=== PATIENT | female | born 1950 | race Caucasian/White ===

== ENCOUNTER 2016-08-22 13:48 | Inpatient (IN) | payer OTHER ==
[~2016-08-22] VITALS: Ht 162.6 cm; Wt 148.2 kg
[~2016-08-22 13:48] MED LIST: ACTONEL150 MG PO; EXCEDRIN1 TABLET PO; GLYBURID-METFO1 EAC3 PO; HYDROCHLOROTHIA50 MG PO; K-Dur PO; KLOR-CON20 MEQ PO; Lopressor PO; Proventil,Ventolin H IH; SIMVASTATIN80 MG PO; SPIRIVA1 INHALATI IH; SUMATRIPTAN SU100 MG PO
[2016-08-22 15:35] LABS: CHLORIDE 98 mEq/L (99-109); POTASSIUM 3.5 mEq/L (3.7-5.4); SODIUM 139 mEq/L (136-147)
[2016-08-22 15:37] LABS: EOSINOPHIL (%) 1.1 % (0-5); EOSINOPHIL COUNT 0.1 K/uL (0-0.3); HEMATOCRIT 58.4 % (36.0-46.0); IMMATURE GRANULOCYTE (%) 0.4 % (0.0-0.7); INSTRUMENT ABS NEUTROPHIL CT 3.7 K/uL; LYMPHOCYTE COUNT 1.3 K/uL (1.0-2.8); MCH 29.1 PG (29.0-34.0); MCHC 31.5 G/DL (30.0-36.0); MCV 92.3 FL (83-99); MEAN PLAT.VOLUME 11.3 uM^3 (9.5-12.4); MONOCYTE (%) 7.1 % (3-12); MONOCYTE COUNT 0.4 K/uL (0-0.8); NEUTROPHIL COUNT 3.7 K/uL (1.8-6.4); PLATELET COUNT 134 K/uL (156-360); RBC DIS.WIDTH-CV 16.6 % (11.8-14.6); RBC DIS.WIDTH-SD 53.3 % (39-53); RED BLOOD COUNT 6.33 M/uL (3.80-5.20); WHITE BLOOD COUNT 5.5 K/uL (4.1-10.2)
[2016-08-22 15:38] LABS: GLUCOSE 147 mg/dL (70-99)
[2016-08-22 15:39] LABS: ANION GAP 9 MEQ/L (2-14)
[2016-08-22 15:40] LABS: TOTAL BILIRUBIN 0.7 mg/dL (0.0-1.0)
[2016-08-22 15:41] LABS: ALKALINE PHOSPHATASE 102 IU/L (3-129); GFR ESTIMATE (CALCULATED) > 59 mL/min/
[2016-08-22 15:42] LABS: UREA NITROGEN (BUN) 7 mg/dL (9-23)
[2016-08-22 15:50] LABS: TROP-I INTERPRETATION NEGATIVE; TROPONIN-I 0.01 ng/mL (0.0-0.30)
[2016-08-22] MEDS ORDERED: EXCEDRIN MIGRA1 EAC3 PO (17:17)
[2016-08-22] MEDS ORDERED: NORCO 10/3251 TABLET PO (17:21)
[2016-08-22] MEDS ORDERED: GABAPENTIN400 MG PO (17:22)
[2016-08-22] MEDS ORDERED: POTASSIUM CHLO10 ME3 PO (17:22)
[2016-08-22] MEDS ORDERED: FUROSEMIDE40 MG PO (17:22)
[2016-08-22] MEDS ORDERED: BENAZEPRIL HCL10 MG PO (17:23)
[2016-08-22 21:30] VITALS: BP 183/71
[2016-08-22 22:56] LABS: INFLUENZA A VIRAL ANTIGEN NEGATIVE; INFLUENZA B VIRAL ANTIGEN NEGATIVE
[2016-08-23] VITALS: BP 154/73
[2016-08-23 04:00] VITALS: BP 143/86
[2016-08-23 08:00] VITALS: BP 162/70
[2016-08-23 08:02] LABS: MCH 28.3 PG (29.0-34.0); MCHC 31.1 G/DL (30.0-36.0); MCV 90.9 FL (83-99); MEAN PLAT.VOLUME 11.4 uM^3 (9.5-12.4); PLATELET COUNT 117 K/uL (156-360); RBC DIS.WIDTH-SD 54.1 % (39-53); RED BLOOD COUNT 5.94 M/uL (3.80-5.20)
[2016-08-23 08:04] LABS: ANION GAP 7 MEQ/L (2-14); CHLORIDE 102 MEQ/L (99-109); GFR ESTIMATE (CALCULATED) > 59 mL/min/; GLUCOSE 191 mg/dL (70-99); SAMPLE HEMOLYSIS CHECK 1; SAMPLE ICTERIC CHECK 0; SAMPLE LIPEMIA CHECK 0; SODIUM 138 MEQ/L (136-147); UREA NITROGEN (BUN) 8 mg/dL (9-23)
[2016-08-23 08:07] LABS: POTASSIUM 4.3 MEQ/L (3.7-5.4)
[2016-08-23 09:53] LABS: Estimated Average Glucose 169 mg/dL (70-123); HEMOGLOBIN A1c (GLYCOHEMOGLOB) 7.5 % HGB (Below 5.7)
[2016-08-23 12:50] VITALS: BP 168/75
[2016-08-23 14:13] LABS: BASE EXCESS 7.6 mEq/L (-3 to +3); BICARBONATE 32.7 mEq/L (22-26); CARBOXY HGB 5.3 % (0-5); COMMENTS - BLOOD GASES A+C+; DEVICE NC; METHEMOGLOBIN 1.7 % (0-1.5); O2 FLOW 3 L/MIN; PCO2 46 mm Hg (35-45); PO2 69 mm Hg (80-100); SITE RR; TOTAL RESP RATE 12 resp/min; pH 7.46 (7.35-7.45)
[2016-08-23 17:02] VITALS: BP 135/72
[2016-08-23 21:53] LABS: POINT-OF-CARE METER ID UU14174225
[2016-08-23 23:46] VITALS: BP 152/73
[2016-08-24 08:00] VITALS: BP 143/76
[2016-08-24 08:27] LABS: POINT-OF-CARE METER ID UU14174225
[2016-08-24 11:58] LABS: POINT-OF-CARE METER ID UU14174225
[2016-08-24 15:46] VITALS: BP 148/72
[2016-08-24 16:57] LABS: POINT-OF-CARE METER ID UU14174225
[2016-08-25 00:12] VITALS: BP 151/76
[2016-08-25 07:01] LABS: ANION GAP 8 MEQ/L (2-14); CHLORIDE 96 MEQ/L (99-109); GFR ESTIMATE (CALCULATED) > 59 mL/min/; GLUCOSE 208 mg/dL (70-99); POTASSIUM 3.8 MEQ/L (3.7-5.4); SAMPLE HEMOLYSIS CHECK 0; SAMPLE ICTERIC CHECK 0; SAMPLE LIPEMIA CHECK 0; SODIUM 138 MEQ/L (136-147); UREA NITROGEN (BUN) 16 mg/dL (9-23)
[2016-08-25 07:27] LABS: EOSINOPHIL (%) 0 % (0-5); HEMATOCRIT 50.5 % (36.0-46.0); IMMATURE GRANULOCYTE (%) 0.3 % (0.0-0.7); INSTRUMENT ABS NEUTROPHIL CT 5.5 K/uL; LYMPHOCYTE COUNT 0.4 K/uL (1.0-2.8); MCH 28.7 PG (29.0-34.0); MCHC 31.7 G/DL (30.0-36.0); MCV 90.5 FL (83-99); MEAN PLAT.VOLUME 11.9 uM^3 (9.5-12.4); MONOCYTE COUNT 0.3 K/uL (0-0.8); NEUTROPHIL (%) 88.8 % (45-76); NEUTROPHIL COUNT 5.5 K/uL (1.8-6.4); PLATELET COUNT 107 K/uL (156-360); RBC DIS.WIDTH-CV 16.2 % (11.8-14.6); RBC DIS.WIDTH-SD 52.7 % (39-53); RED BLOOD COUNT 5.58 M/uL (3.80-5.20)
[2016-08-25 07:41] LABS: WHITE BLOOD COUNT 6.2 K/uL (4.1-10.2)
[2016-08-25 08:17] LABS: INTERNAL CONTROL VALID? YES
[2016-08-25 08:34] VITALS: BP 152/78
[2016-08-25 11:38] LABS: C DIFF TOXIN NEGATIVE (NEGATIVE)
[2016-08-25 11:40] LABS: PROBE CHECK PASS; SPECIMEN PROCESSING CONTROL PASS
[2016-08-25 16:03] VITALS: BP 164/81
[2016-08-25 22:30] LABS: ADD MIUA? NO; BILIRUBIN NEGATIVE; BLOOD NEGATIVE; COLOR STRAW ((YELLOW)); GLUCOSE (STRIP) NEGATIVE; KETONES NEGATIVE; LEUKOCYTES NEGATIVE; NITRITE NEGATIVE; PROTEIN (STRIP) 30; UCUL ADDED? NO; UROBILINOGEN 0.2 MG/DL (0.2-1.0)
[2016-08-25 23:55] VITALS: BP 196/83
[2016-08-26 07:30] VITALS: BP 176/79
[2016-08-26 11:01] LABS: POINT-OF-CARE METER ID UU14188625
[2016-08-26] MEDS ORDERED: HYDROCODON-ACE1 EAC9 PO (13:51)
[2016-08-26] MEDS ORDERED: ADVAIR HFA120 INHALA IH (13:51)
[2016-08-26] MEDS ORDERED: VENTOLIN HFA18 GM IH (13:51)
[2016-08-26] MEDS ORDERED: LOSARTAN POTASS50 MG PO (13:51)
[2016-08-26] MEDS ORDERED: PREDNISONE20 MG PO (13:51)
[2016-08-26] MEDS ORDERED: ATIVAN0.5 MG PO (13:51)
[2016-08-26] MEDS ORDERED: SPIRIVA RESPIMAT4 GM IH (13:51)
[2016-08-26] MEDS ORDERED: LEVOFLOXACIN750 MG PO (13:51)
[2016-08-26 15:04] VITALS: BP 152/73
[2016-08-26 15:49] LABS: POINT-OF-CARE METER ID UU14188625
== END 2016-08-26 18:18 | disposition home health service (06) | DRG 190 ==
LOC: EME → EDBD 13:48 → EDOF 16:33 → 5SOUTH 16:33
PROVIDERS: Emergency Medicine; Hospitalist; Internal Medicine; Nurse Practitioner Adult Health
DX: J44.1 Chronic obstructive pulmonary disease with (acute) exacerbation (principal); J96.21 Acute and chronic respiratory failure with hypoxia; Z68.42 Body mass index [BMI] 45.0-49.9, adult; J44.0 Chronic obstructive pulmonary disease with (acute) lower respiratory infection; F17.200 Nicotine dependence, unspecified, uncomplicated; J20.9 Acute bronchitis, unspecified; E11.42 Type 2 diabetes mellitus with diabetic polyneuropathy; E87.6 Hypokalemia; M79.7 Fibromyalgia; R03.0 Elevated blood-pressure reading, without diagnosis of hypertension; E66.9 Obesity, unspecified
CPT/HCPCS: 36600; 71010; 71020; 71250; 76937; 80048; 80053; 81003; 82803; 82948; 83036; 83605; 83880; 84484; 85025; 85027; 87040; 87070; 87205; 87449; 87493; 87502; 93005; 93306; 94640; 94640 76; 94760; 94799; 99202; 99281; 99285; C1894; J0360; J0456; J0696; J1644; J1815; J1956; J2405; J2930; J7030; J7050; J7512

== ENCOUNTER 2016-09-06 21:03 | Emergency (ER) | payer OTHER ==
[~2016-09-06] VITALS: Ht 162.6 cm; Wt 112.1 kg
[~2016-09-06 21:03] MED LIST changes: +ADVAIR HFA120 INHALA IH; +ATIVAN0.5 MG PO; +BENAZEPRIL HCL10 MG PO; +EXCEDRIN MIGRA1 EAC3 PO; +FUROSEMIDE40 MG PO; +GABAPENTIN400 MG PO; +HYDROCODON-ACE1 EAC9 PO; +LEVOFLOXACIN750 MG PO; +LOSARTAN POTASS50 MG PO; +NORCO 10/3251 TABLET PO; +POTASSIUM CHLO10 ME3 PO; +PREDNISONE20 MG PO; +SPIRIVA RESPIMAT4 GM IH; +VENTOLIN HFA18 GM IH
[2016-09-07 00:07] LABS: CHLORIDE 96 mEq/L (99-109); POTASSIUM 3.5 mEq/L (3.7-5.4); SODIUM 138 mEq/L (136-147)
[2016-09-07 00:09] LABS: GLUCOSE 265 mg/dL (70-99)
[2016-09-07 00:10] LABS: ANION GAP 10 MEQ/L (2-14); PROTHROMBIN TIME 9.7 (9.2-11.2); PTT 31.4 (25-32)
[2016-09-07 00:13] LABS: GFR ESTIMATE (CALCULATED) > 59 mL/min/
[2016-09-07 00:14] LABS: UREA NITROGEN (BUN) 20 mg/dL (9-23)
[2016-09-07 00:34] LABS: EOSINOPHIL (%) 1.5 % (0-5); EOSINOPHIL COUNT 0.2 K/uL (0-0.3); HEMATOCRIT 46.3 % (36.0-46.0); IMMATURE GRANULOCYTE (%) 0.9 % (0.0-0.7); IMMATURE GRANULOCYTE COUNT 0.1 K/uL; INSTRUMENT ABS NEUTROPHIL CT 10.5 K/uL; LYMPHOCYTE COUNT 1.2 K/uL (1.0-2.8); MCH 28.6 PG (29.0-34.0); MCHC 30.9 G/DL (30.0-36.0); MCV 92.6 FL (83-99); MEAN PLAT.VOLUME 12.5 uM^3 (9.5-12.4); MONOCYTE COUNT 0.6 K/uL (0-0.8); NEUTROPHIL (%) 82.6 % (45-76); NEUTROPHIL COUNT 10.5 K/uL (1.8-6.4); PLATELET COUNT 138 K/uL (156-360); RBC DIS.WIDTH-CV 15.4 % (11.8-14.6); RBC DIS.WIDTH-SD 52.6 % (39-53); WHITE BLOOD COUNT 12.7 K/uL (4.1-10.2)
[2016-09-07 03:22] VITALS: BP 114/72
== END 2016-09-07 03:22 | disposition short-term general hospital (02) ==
LOC: TRA → EME → EDBD 21:03 → TRA 21:03 → EME 21:03 → TRA 09-07 03:22
PROVIDERS: Emergency Medicine
DX: S72.401A Unspecified fracture of lower end of right femur, initial encounter for closed fracture (principal); W18.30XA Fall on same level, unspecified, initial encounter; Y92.009 Unspecified place in unspecified non-institutional (private) residence as the place of occurrence of the external cause; R07.81 Pleurodynia; Z96.651 Presence of right artificial knee joint; E11.9 Type 2 diabetes mellitus without complications; E78.5 Hyperlipidemia, unspecified; F17.200 Nicotine dependence, unspecified, uncomplicated
CPT/HCPCS: 71010; 73560; 80048; 85025; 85610; 85730; 86850; 86900; 86901; 94640; 99281; 99285; J2270; J2405; J3010; J7030

== ENCOUNTER 2016-12-09 14:44 | Emergency (ER) | payer OTHER ==
[~2016-12-09] VITALS: Ht 162.6 cm; Wt 104.2 kg
[2016-12-09 14:46] VITALS: BP 150/61
[2016-12-09 15:38] LABS: EOSINOPHIL (%) 2.3 % (0-5); EOSINOPHIL COUNT 0.2 K/uL (0-0.3); HEMATOCRIT 39.1 % (36.0-46.0); IMMATURE GRANULOCYTE (%) 0.3 % (0.0-0.7); INSTRUMENT ABS NEUTROPHIL CT 6.5 K/uL; LYMPHOCYTE COUNT 1.7 K/uL (1.0-2.8); MCH 28.5 PG (29.0-34.0); MCHC 31.2 G/DL (30.0-36.0); MCV 91.4 FL (83-99); MEAN PLAT.VOLUME 10.1 uM^3 (9.5-12.4); MONOCYTE (%) 5.1 % (3-12); MONOCYTE COUNT 0.5 K/uL (0-0.8); NEUTROPHIL (%) 73.5 % (45-76); NEUTROPHIL COUNT 6.5 K/uL (1.8-6.4); PLATELET COUNT 298 K/uL (156-360); RBC DIS.WIDTH-CV 14.6 % (11.8-14.6); RBC DIS.WIDTH-SD 48.6 % (39-53); WHITE BLOOD COUNT 8.8 K/uL (4.1-10.2)
[2016-12-09 15:41] LABS: RED BLOOD COUNT 4.28 M/uL (3.80-5.20)
[2016-12-09 16:02] LABS: CHLORIDE 95 mEq/L (99-109); POTASSIUM 4.1 mEq/L (3.7-5.4); SODIUM 140 mEq/L (136-147)
[2016-12-09 16:03] LABS: GLUCOSE 131 mg/dL (70-99)
[2016-12-09 16:05] LABS: ANION GAP 13 MEQ/L (2-14)
[2016-12-09 16:07] LABS: GFR ESTIMATE (CALCULATED) > 59 mL/min/
[2016-12-09 16:08] LABS: UREA NITROGEN (BUN) 12 mg/dL (9-23)
[2016-12-09] MEDS ORDERED: BENTYL20 MG PO (16:50)
[2016-12-09] MEDS ORDERED: FLAGYL500 MG PO (16:50)
== END 2016-12-09 19:00 | disposition home or self-care (01) ==
LOC: EME 14:44
PROVIDERS: Emergency Medicine
DX: R19.7 Diarrhea, unspecified (principal); Z86.19 Personal history of other infectious and parasitic diseases; E78.5 Hyperlipidemia, unspecified; G89.29 Other chronic pain; F17.200 Nicotine dependence, unspecified, uncomplicated; Z88.6 Allergy status to analgesic agent; Z90.49 Acquired absence of other specified parts of digestive tract
CPT/HCPCS: 80048; 85025; 87493; 99281; 99285